=== PATIENT | male | born 1970 | race Caucasian/White ===

== ENCOUNTER 2018-09-18 14:46 | Inpatient (IN) | payer OTHER ==
[2018-09-18] MEDS ORDERED: NA CHLORIDE 0.9% 2,000 ML ONE (15:15)
[2018-09-18 15:22] LABS: Absolute Lymphocytes (CBC) 1.5 K/uL (0.7-4.9); Absolute Monocytes 0.4 K/uL (0.1-1.3); Absolute Neutrophil 5.4 K/uL (1.8-8.0); Basophils % 0.6 % (0-1.3); Eosinophils % 0.3 % (0-4.4); Hematocrit 39.7 % (39.6-49.0); Lymphocytes % 20.6 % (15.3-44.8); MPV 8.1 fL (7.6-11.3); RBC Red Blood Cell Count 4.41 M/uL (4.33-5.43)
[2018-09-18 15:40] LABS: Albumin 3.5 g/dL (3.4-5.0); Bilirubin Direct 0.1 mg/dL (0-0.2); Bilirubin Total 0.5 mg/dL (0.2-1.0); Potassium 4.1 mmol/L (3.5-5.1); Protein, Total 6.5 g/dL (6.4-8.2)
[2018-09-18] MEDS ORDERED: OCTREOTIDE ACETATE 100 MCG/ML ONE (16:34)
[2018-09-18] MEDS: OCTREOTIDE 500 MCG in NA CHLORIDE 0.9% 500 ML IV SCH (17:00)
--- NOTE | 2018-09-18 17:14 | EDPHYS ---
Physician Documentation [facility] Name: Kris Trinidad Age: 48 yrs Sex: Male : 1970 Arrival Date: 09/18/2018 Time: 14:53 Bed 23 Private MD: ED Physician Ajit Hyde HPI: 09/18 17:21 This 48 yrs old Male presents to ER via EMS with complaints of GI Bleeding, gs Syncope. 17:21 The patient presents to the emergency department with rectal bleeding, a large amount, gs brb. Onset: The symptoms/episode began/occurred today. Abdominal pain: none is appreciated. Modifying factors: The symptoms are alleviated by nothing, the symptoms are aggravated by nothing. Associated signs and symptoms: Pertinent positives: syncope. Severity of symptoms: At their worst the symptoms were incapacitating in the emergency department the symptoms are unchanged. The patient has not experienced similar symptoms in the past. Historical: - Allergies: 15:11 No Known Allergies; iw - Home Meds: 15:11 Metformin Oral [Active]; iw - PMHx: 15:11 Diabetes - NIDDM; iw - PSHx: 15:11 None; iw - Immunization history:: Flu vaccine status is unknown. - Social history:: Smoking status: . - Ebola Screening: : Patient negative for fever greater than or equal to 101.5 degrees Fahrenheit, and additional compatible Ebola Virus Disease symptoms Patient denies exposure to infectious person Patient denies travel to an Ebola-affected area in the 21 days before illness onset No symptoms or risks identified at this time. ROS: 17:21 All other systems are negative. gs Exam: 17:21 Head/Face: Normocephalic, atraumatic. Eyes: Pupils equal round and reactive to light, gs extra-ocular motions intact. Lids and lashes normal. Conjunctiva and sclera are non-icteric and not injected. Cornea within normal limits. Periorbital areas with no swelling, redness, or edema. ENT: Nares patent. No nasal discharge, no septal abnormalities noted. Tympanic membranes are normal and external auditory canals are clear. Oropharynx with no redness, swelling, or masses, exudates, or evidence of obstruction, uvula midline. Mucous membranes moist. Neck: Trachea midline, no thyromegaly or masses palpated, and no cervical lymphadenopathy. Supple, full range of motion without nuchal rigidity, or vertebral point tenderness. No Meningismus. Chest/axilla: Normal chest wall appearance and motion. Nontender with no deformity. No lesions are appreciated. 17:21 Respiratory: Lungs have equal breath sounds bilaterally, clear to auscultation and percussion. No rales, rhonchi or wheezes noted. No increased work of breathing, no retractions or nasal flaring. Back: No spinal tenderness. No costovertebral tenderness. Full range of motion. Skin: Warm, dry with normal turgor. Normal color with no rashes, no lesions, and no evidence of cellulitis. MS/ Extremity: Pulses equal, no cyanosis. Neurovascular intact. Full, normal range of motion. Neuro: Awake and alert, GCS 15, oriented to person, place, time, and situation. Cranial nerves II-XII grossly intact. Motor strength 5/5 in all extremities. Sensory grossly intact. Cerebellar exam normal. Normal gait. 17:21 Constitutional: The patient appears alert, awake. 17:21 Cardiovascular: Rate: tachycardic, Rhythm: regular, Pulses: no pulse deficits are appreciated. 17:21 ECG was reviewed by the Attending Physician. 17:21 Abdomen/GI: Inspection: abdomen appears normal, Palpation: abdomen is soft and non-tender, in all quadrants, Rectal exam: Stool: grossly bloody. Vital Signs: 14:53 BP 103 / 79; Pulse 99; Resp 16 S; Temp 97.0(TE); Pulse Ox 98% on R/A; Weight 117.93 kg; iw Height 5 ft. 11 in. (180.34 cm); Pain 0/10; 15:55 BP 115 / 69; Pulse 94; Resp 18; Temp 97; Pulse Ox 100% on R/A; Pain 0/10; mg2 17:00 BP 122 / 78; Pulse 86; Resp 18; Temp 98(O); Pulse Ox 98% on R/A; Pain 0/10; mg2 18:00 BP 119 / 81; Pulse 80; Resp 17; Temp 98; Pulse Ox 98% on R/A; Pain 0/10; mg2 18:45 BP 118 / 82; Pulse 85; Resp 18; Temp 97.9; Pulse Ox 100% on R/A; Pain 0/10; mg2 14:53 Body Mass Index 36.26 (117.93 kg, 180.34 cm) iw MDM: 14:59 Patient medically screened. gs 17:21 Differential diagnosis: gastritis, diverticulitis, hemorrhagic shock. Data reviewed: vital signs, nurses notes, lab test result(s), EKG. Counseling: I had a detailed discussion with the patient and/or guardian regarding: the historical points, exam findings, and any diagnostic results supporting the discharge/admit diagnosis, the need for further work-up and treatment in the hospital. Physician consultation: Austen Vega MD and will see patient in ED, would like admission per Dr. Darrell Hernandez DO. 09/18 15:00 Order name: Type And Screen 09/18 15:00 Order name: Basic Metabolic Panel; Complete Time: 16:13 09/18 15:00 Order name: CBC with Diff; Complete Time: 16:13 09/18 15:00 Order name: Hepatic Function; Complete Time: 16:13 09/18 15:00 Order name: EKG; Complete Time: 15:01 09/18 15:00 Order name: EKG - Nurse/Tech; Complete Time: 15:50 09/18 15:00 Order name: IV Saline Lock; Complete Time: 15:09 09/18 15:00 Order name: Labs collected and sent; Complete Time: 15:11 gs EC:21 Rate is 96 beats/min. Rhythm is regular. [place] interval is normal. QRS interval is normal. gs QT interval is normal. T waves are Normal. No ST changes noted. Clinical impression: Abnormal EKG without significant change. Interpreted by me. Administered Medications: 15:10 Drug: NS 0.9% 1000 ml Route: IV; Rate: 200 ml/hr; Site: left forearm; mg2 18:51 Follow up: Response: No adverse reaction; IV Status: Infusion continued upon admission mg2 15:11 Drug: NS 0.9% 1000 ml Route: IV; Rate: 1 bolus; Site: left forearm; mg2 17:22 Follow up: Response: No adverse reaction; IV Status: Completed infusion; IV Intake: mg2 1000ml 18:52 Follow up: Response: No adverse reaction; IV Status: Completed infusion; IV Intake: mg2 1000ml 16:52 Drug: Octreotide 50 mcg Route: IV; Rate: bolus; Site: right forearm; mg2 18:51 Follow up: Response: No adverse reaction; IV Status: Infusion continued upon admission mg2 16:52 Drug: Octreotide Infusion (50 mcg/hr) - (Octreotide 500 mcg, NS 0.9% 500 ml) Route: IV; mg2 Rate: 50 ml/hr; Site: left forearm; 18:51 Follow up: Response: No adverse reaction; IV Status: Infusion continued upon admission mg2 Disposition: 09/18/18 17:13 Hospitalization ordered by Darrell Hernandez for Inpatient Admission. Preliminary diagnosis is Gastrointestinal hemorrhage, unspecified. - Bed requested for Intensive Care Unit. - Status is Inpatient Admission. mg2 - Condition is Stable. - Problem is new. - Symptoms have improved. UTI on Admission? No Critical care time excluding procedures: 17:21 Critical care time: Bedside Care: 10 minutes, Consultation: 10 minutes, Family gs Intervention: 10 minutes. Total time: 30 minutes Signatures: Dispatcher [employer] EDPauly Simeon RN RN Ajit Hyde MD MD Jaskaran Arevalo RN RN mg2 Corrections: (The following items were deleted from the chart) 18:53 17:13 Hospitalization Ordered by Darrell Hernandez DO for Inpatient Admission. Preliminary mg2 diagnosis is Gastrointestinal hemorrhage, unspecified. Bed requested for Intensive Care Unit. Status is Inpatient Admission. Condition is Stable. Problem is new. Symptoms have improved. UTI on Admission? No. gs
--- NOTE | 2018-09-18 17:14 | ER ---
Nurse's Notes [facility] Name: Kris Trinidad Age: 48 yrs Sex: Male : 1970 Arrival Date: 09/18/2018 Time: 14:53 Bed 23 Private MD: Diagnosis: Gastrointestinal hemorrhage, unspecified Presentation: 09/18 14:55 Presenting complaint: EMS states: pt had colonoscopy yesterday by Dr. Vega, started iw having rectal bleeding at home today, went to follow up at Gary's office, had syncopal episode while in bathroom, had large amount of bright red blood in stool, pt was pale and diaphoretic on scene, hypotensive and tachycardic on scene. Transition of care: patient was received from another setting of care (ambulatory specialty care practice), Dr. Vega. Onset of symptoms was September 18, 2018. Risk Assessment: Do you want to hurt yourself or someone else? Patient reports no desire to harm self or others. Initial Sepsis Screen: Does the patient meet any 2 criteria? HR > 90 bpm. Does the patient have a suspected source of infection? No. Patient's initial sepsis screen is negative. Care prior to arrival: Medication(s) given: Normal saline infusion, 500 mL, IV initiated. 20 GA, in the left forearm, Glucose check: 161. 14:55 Method Of Arrival: EMS: [facility] iw 14:55 Acuity: [place] 2 iw Historical: - Allergies: 15:11 No Known Allergies; iw - Home Meds: 15:11 Metformin Oral [Active]; iw - PMHx: 15:11 Diabetes - NIDDM; iw - PSHx: 15:11 None; iw - Immunization history:: Flu vaccine status is unknown. - Social history:: Smoking status: . - Ebola Screening: : Patient negative for fever greater than or equal to 101.5 degrees Fahrenheit, and additional compatible Ebola Virus Disease symptoms Patient denies exposure to infectious person Patient denies travel to an Ebola-affected area in the 21 days before illness onset No symptoms or risks identified at this time. Screenin:12 Abuse screen: Denies threats or abuse. Denies injuries from another. Nutritional mg2 screening: No deficits noted. Tuberculosis screening: No symptoms or risk factors identified. Fall Risk Fall in past 12 months (25 points). IV access (20 points). Assessment: 15:51 General: Appears in no apparent distress. comfortable, Behavior is calm, cooperative. mg2 Pain: Denies pain. Neuro: Level of Consciousness is awake, alert, obeys commands, Oriented to person, place, time, situation, Reports a syncopal episode. Cardiovascular: Capillary refill < 3 seconds Patient's skin is warm and dry. Respiratory: Airway is patent Respiratory effort is even, unlabored, Respiratory pattern is regular, symmetrical. GI: Abdomen is round non-distended, Reports rectal bleeding. : No signs and/or symptoms were reported regarding the genitourinary system. EENT: No signs and/or symptoms were reported regarding the EENT system. Derm: Skin is intact, is healthy with good turgor, Skin is pink, warm \T\ dry. normal. Musculoskeletal: Circulation, motion, and sensation intact. Capillary refill < 3 seconds. 17:22 Reassessment: dr henry came and advised for admission. mg2 18:48 Reassessment: tap water enema done to the patient, tolerated well, passed bloody output mg2 enema. endoscopy nurse came and saw the output and dr momin was called and ordered to take the patient to endoscopy now. Vital Signs: 14:53 BP 103 / 79; Pulse 99; Resp 16 S; Temp 97.0(TE); Pulse Ox 98% on R/A; Weight 117.93 kg; iw Height 5 ft. 11 in. (180.34 cm); Pain 0/10; 15:55 BP 115 / 69; Pulse 94; Resp 18; Temp 97; Pulse Ox 100% on R/A; Pain 0/10; mg2 17:00 BP 122 / 78; Pulse 86; Resp 18; Temp 98(O); Pulse Ox 98% on R/A; Pain 0/10; mg2 18:00 BP 119 / 81; Pulse 80; Resp 17; Temp 98; Pulse Ox 98% on R/A; Pain 0/10; mg2 18:45 BP 118 / 82; Pulse 85; Resp 18; Temp 97.9; Pulse Ox 100% on R/A; Pain 0/10; mg2 14:53 Body Mass Index 36.26 (117.93 kg, 180.34 cm) iw ED Course: 14:53 Patient arrived in ED. iw 14:53 Paluy Rivera, RN is Primary Nurse. iw 14:58 Triage completed. iw 14:58 Arm band placed on. iw 14:59 Ajit Hyde MD is Attending Physician. gs 15:11 Inserted saline lock: 20 gauge in right antecubital area, using aseptic technique. mg2 Blood collected. by NITHYA Coats Maintain EMS IV. Dressing intact. Good blood return noted. Site clean \T\ dry. Gauge \T\ site: 20 \T\ LFA. IV is patent. 15:31 EKG done, by technical marketing engineer. reviewed by Ajit Hyde MD. sm3 15:52 Patient has correct armband on for positive identification. monitoring coordinator on. Pulse mg2 ox on. NIBP on. Door closed. Warm blanket given. 15:55 No provider procedures requiring assistance completed. mg2 17:13 Darrell Henry DO is Hospitalizing Provider. gs 18:40 tap water enema Patient tolerated well . mg2 18:42 Jaskaran Arevalo, AKOSUA is Primary Nurse. mg2 18:48 Patient admitted, IV remains in place. mg2 Administered Medications: 15:10 Drug: NS 0.9% 1000 ml Route: IV; Rate: 200 ml/hr; Site: left forearm; mg2 18:51 Follow up: Response: No adverse reaction; IV Status: Infusion continued upon admission mg2 15:11 Drug: NS 0.9% 1000 ml Route: IV; Rate: 1 bolus; Site: left forearm; mg2 17:22 Follow up: Response: No adverse reaction; IV Status: Completed infusion; IV Intake: mg2 1000ml 18:52 Follow up: Response: No adverse reaction; IV Status: Completed infusion; IV Intake: mg2 1000ml 16:52 Drug: Octreotide 50 mcg Route: IV; Rate: bolus; Site: right forearm; mg2 18:51 Follow up: Response: No adverse reaction; IV Status: Infusion continued upon admission mg2 16:52 Drug: Octreotide Infusion (50 mcg/hr) - (Octreotide 500 mcg, NS 0.9% 500 ml) Route: IV; mg2 Rate: 50 ml/hr; Site: left forearm; 18:51 Follow up: Response: No adverse reaction; IV Status: Infusion continued upon admission mg2 Intake: 17:22 IV: 1000ml; Total: 1000ml. mg2 18:52 IV: 1000ml; Total: 2000ml. mg2 Outcome: 17:13 Decision to Hospitalize by Provider. gs 18:52 Admitted to OR accompanied by nurse, via stretcher, with chart, Report called to [facility] endoscopy nurse AKOSUA mora 18:52 Condition: stable 18:52 Instructed on the need for admit. 18:53 Patient left the ED. [facility] Signatures: Pauly Rivera RN RN Ajit Hyde MD MD Jaskaran Arevalo RN RN [facility] Niru Carrillo 3 Corrections: (The following items were deleted from the chart) 15:20 14:53 BP 103 / 79; Pulse 99bpm; Resp 16bpm; Spontaneous; Pulse Ox 98% RA; iw iw 15:56 15:55 BP 115 / 69; Pulse 87bpm; Resp 18bpm; Pulse Ox 100% RA; Temp 97F; Pain 0/10; mg2 mg2
--- NOTE | 2018-09-18 17:58 | P.HP ---
Certification for Inpatient Patient admitted to: Inpatient With expected LOS: >2 Midnights Patient will require the following post-hospital care: None Practitioner: I am a practitioner with admitting privileges, knowledge of patient current condition, hospital course, and medical plan of care. Services: Services provided to patient in accordance with Admission requirements found in Title 42 Section 412.3 of the Code of Federal Regulations Patient History Date of Service: 09/18/18 Primary Care Provider: Dr. Ovalle; GI-Dr. Vega Reason for admission: Rectal bleeding, syncope History of Present Illness: 48-year-old male presented to the emergency room after he had a syncopal episode with rectal bleeding. Patient had a colonoscopy yesterday at GI office. He had some rectal bleeding post procedure. The patient was sent home. He noted some rectal bleeding overnight. Rectal bleeding continued. He went back to the GI office to get evaluated. He had a syncopal episode while going to the bathroom vera. He was sent to the ER for further evaluation. In the ER blood pressures were slightly decreased. He was given IV fluids with improvement. Hemoglobin 13.5. CT scan done last night showed no perforation. This was order by GI. Patient reports no chest pain, shortness of breath at this time. Blood pressures remain stable. Patient will be admitted to ICU for close monitoring. Colonoscopy is planned. Patient started on Sandostatin. When I saw the patient in the ER, he appeared comfortable. Blood pressures remain stable. He is not tachycardic. No significant rectal bleeding noted at this time. Patient had colonoscopy yesterday as a screen evaluation. He reports that he had a polypectomy. Home medications list reviewed: Yes - Past Medical/Surgical History Diabetic: Yes -: Diabetes mellitus type 2 -: Right knee surgery Psychosocial/ Personal History: Patient is . He has 3 children. - Family History Father -: Cancer (Lung cancer) Mother -: Other (see notes) (Priscilla Gehrig's disease) - Social History Smoking Status: Never smoker Alcohol use: Yes CD- Drugs: No Caffeine use: Yes Place of Residence: Home Review of Systems General: Weakness, As per HPI Eyes: Unremarkable ENT: Unremarkable Respiratory: As per HPI Cardiovascular: Light Headedness, As per HPI Gastrointestinal: Unremarkable Genitourinary: Unremarkable Musculoskeletal: Unremarkable Integumentary: Unremarkable Neurological: As per HPI Lymphatics: Unremarkable Physical Examination - Physical Exam General: Alert, In no apparent distress, Oriented x3, Cooperative HEENT: Atraumatic, Normocephalic, PERRLA, Mucous membr. moist/pink Neck: Supple Respiratory: Clear to auscultation bilaterally, Normal air movement Cardiovascular: Normal pulses, Regular rate/rhythm Gastrointestinal: Normal bowel sounds, Soft and benign, Non-distended, No tenderness, No masses, No rebound, No guarding Musculoskeletal: No erythema, No tenderness, No warmth Integumentary: No tenderness/swelling, No erythema, No warmth, No cyanosis Neurological: Normal speech, Normal strength at 5/5 x4 extr, Normal tone, Normal affect - Studies Laboratory Data (last 24 hrs) 09/18/18 15:00: WBC 7.3, Hgb 13.5 L, Hct 39.7, Plt Count 255 09/18/18 15:00: Sodium 141, Potassium 4.1, BUN 15, Creatinine 1.19, Glucose 189 H, Total Bilirubin 0.5, AST 20, ALT 40, Alkaline Phosphatase 41 L Assessment and Plan - Plan Impression: Rectal bleeding with syncope status post colonoscopy and polypectomy Acute anemia secondary to above Diabetes mellitus type 2 Plan: Patient will be admitted to ICU. Case discussed with GI. Will continue with IV Sandostatin. Will continue with IV fluids. Will monitor hemoglobin every 6 hr over the next 24 hr. Patient may require blood transfusion if hemoglobin below 8.0 or symptomatic. Will continue to monitor closely. Patient will have colonoscopy soon to re-evaluate bleeding. Recent CT scan done last night shows no perforation. Abdomen appears soft. Await findings. Will keep the patient NPO in preparation for colonoscopy. Discharge Plan: Home Plan to discharge in: 48 Hours - Advance Directives Does patient have a Living Will: No Does patient have a Durable POA for Healthcare: No - Code Status/Comfort Care Code Status Assessed: Yes (Patient is full code.) Time Spent Managing Pts Care (In Minutes): 55
[2018-09-18] MEDS ORDERED: PROPOFOL 200 MG/20 ML VIAL IV ONE ×3 (18:21→18:31)
[2018-09-18] MEDS ORDERED: LIDOCAINE 1% MPF 5 ML VIAL ONE (18:29)
[2018-09-18] MEDS ORDERED: EPHEDRINE SULF 50 MG/ML VIAL ONE (18:29)
[2018-09-18] MEDS ORDERED: EPINEPHRINE/PF 1 MG/ML AMP ONE (19:12)
[2018-09-18] MEDS ORDERED: Ringers Lactate 1,000 ML IV ONE (19:45)
--- NOTE | 2018-09-18 19:51 | ENDO RPT ---
[address], [address] COLONOSCOPY PROCEDURE REPORT EXAM DATE: 09/18/2018 PATIENT NAME: Kris Trinidad MR #: [id number] BIRTHDATE: 1970 ATTENDING: Austen Vega Dr STATUS: inpatient PSYCHOLOGY PROFESSOR: Lisa Miller and Beena Simpson RN INDICATIONS: The patient is a 48 yr old Male here for a colonoscopy due to hematochezia PROCEDURE PERFORMED: Colonoscopy with directed submucosal injection(s) any substance and Colon w/ endoclip MEDICATIONS: Per Anesthesia. ESTIMATED BLOOD LOSS: None CONSENT: The patient understands the risks and benefits of the procedure and understands that these risks include, but are not limited to: sedation, allergic reaction, infection, perforation and/or bleeding. Alternative means of evaluation and treatment include, among others: physical exam, x-rays, and/or surgical intervention. The patient elects to proceed with this endoscopic procedure. DESCRIPTION OF PROCEDURE: During intra-op preparation period all mechanical medical equipment was checked for proper function. Hand hygiene and appropriate measures for infection prevention was taken. Procedure, possible complications, alternatives including, but not limited to possibility of bleeding, perforation, tear, infection, sepsis, need for surgery, need for blood transfusion, were explained to the patient. After the risks, benefits and alternatives of the procedure were thoroughly explained, Informed consent was verified, confirmed and timeout was successfully executed by the treatment team. The patient was placed in the left lateral position. A digital rectal exam was performed and revealed no abnormalities of the rectum. After appropriate level of anesthesia, the scope was passed. The EC-[id number] ([id number]) endoscope was introduced through the anus and advanced to the cecum. The quality of the prep was fair. The instrument was then slowly withdrawn as the colon was fully examined. Scope withdrawal time was 12 minutes. COLON FINDINGS: A polypectomy site of prior 2.1 cm flat polyp was found in the ascending colon with 1 prior endoclip at site. A 1:10,000 Epinephrine solution injection of 4 cc was given to control bleeding. Bleeding at the site was controlled using 2 hemoclips. Two (2) placements were made. There was minimal blood loss from maneuver subsiding by end of procedure. Moderate sized internal hemorrhoids were found. Retroflexed views revealed medium hemorrhoids. The scope was then completely withdrawn from the patient and the procedure terminated. ADVERSE EVENTS: There were no complications. IMPRESSIONS: 1. Polypectomy site of prior 2.1 cm flat polyp in the ascending colon with 1 prior endoclip at site; injection was given to control bleeding. 1:10,000 Epinephrine solution - 4 cc total; bleeding at the site was controlled using 2 hemoclips (one proximal and one distal to previously placed hemoclip 2. Pools of blood (dark>fresh heme) fluid noted throughout the colon, predominantly in the right colon with small amount of fibrous material in the right colon preventing full suctioning out of blood in the right colon 2. Moderate sized internal hemorrhoids 3. Intubation to cecum 2. ICU monitoring 3. NPO except ice chips and water until tomorrow, if stable then without further significant bleeding will start CLs 4. Continue IV Octreotide for 3 days and IVFs RECALL: Austen Vega Dr eSigned: Austen Vega Dr 09/18/2018 7:51 PM cc: Darrell Hernandez CPT CODES: ICD9 CODES: 211.3 Benign neoplasm of colon PATIENT NAME: Kris Trinidad MR#: [id number]
[2018-09-18] MEDS ORDERED: ONDANSETRON 4 MG/2 ML VIAL IV PRN (20:27)
[2018-09-18] MEDS ORDERED: SODIUM CHLORIDE 0.9% 10ML INJ IV PRN (20:27)
[2018-09-18] MEDS ORDERED: ACETAMINOPHEN 500 MG TAB PO PRN (20:27)
[2018-09-18] MEDS: INSULIN -REGULAR HUMAN 50 UNIT/0.5 ML ML SQ SCH (21:00)
[2018-09-18] MEDS: NA CHLORIDE 0.9% 1,000 ML IV SCH (21:33)
[2018-09-18 22:23] LABS: Hematocrit 34.8 % (39.6-49.0)
[2018-09-18 22:32] LABS: Urine Appearance CLEAR; Urine Bilirubin NEGATIVE (NEG); Urine Blood NEGATIVE (NEG); Urine Color YELLOW; Urine Glucose NEGATIVE (NEG); Urine Protein NEGATIVE (NEG); Urine Urobilinogen 0.2 mg/dL (0.2-1.0)
[2018-09-18 22:39] LABS: Urine Microscopic Reflex NO UMIC
--- NOTE | 2018-09-19 02:19 | CON ---
Date of Consultation: 09/18/2018 Reason For Consultation: GI bleed, hematochezia, status post colonoscopy, polypectomy yesterday. History Of Present Illness: The patient is a 48-year-old white male who underwent colonoscopy yester day, had a 2.1 cm flat polyp in the ascending colon removed, with Endoclips placed, and 2 smaller 3 m m polyps which were removed by cold polypectomy. The patient did fine until approximately 12:30 toda y when he started having bright red blood per rectum and felt weak and clammy, diaphoretic, came to [facility] office, had a bowel movement with a large amount of blood in the toilet. The patient was transport ed by ambulance to the hospital, resuscitated with IV fluids. Hemoglobin was found to be 13.5, stabi lized. IV octreotide started as well. The patient was given tap water enemas in the emergency room and then the patient brought to the hospital. Past Medical History: See nurse and ER notes. Medications: See home medication list. Allergies: NKDA. Social History: He is . There has been no tobacco. Some occasional alcohol . Review of Systems: The patient has hematochezia, some presyncope, lightheadedness, weakness. He denies any melena, lakshmi temesis, coffee-grounds emesis, nausea, vomiting, fevers, chills, though he has been diaphoretic with bloody stools today since 12:30. He denies any chest pain, shortness of breath, seizure, syncope, l ower extremity edema, muscle aches, joint aches, backaches, depression, anxiety. Physical Examination: Vital Signs: The patient is afebrile currently after resuscitation in the emergency room. General: Appears to be in no acute distress. He is alert and oriented x3. HEENT: Extraocular movements intact. Oropharynx is clear. Neck: Supple. No masses. Respirations: Clear to auscultation bilaterally. Cardiac: Regular rate and rhythm. No gallops or rubs. Abdomen: Positive bowel sounds. Soft, nontender, nondistended. No hepatosplenomegaly. Slightly hy peractive bowel sounds. Extremities: No clubbing, cyanosis, or edema. 2+ pulses. Neuro: Alert and oriented x3. Grossly nonfocal. 5/5 motor strength. Sensation intact to light [place] ch. Laboratory Data: The patient has a hemoglobin of 13.5. Impression: Post polypectomy bleed. Hemoglobin 13.5 today. The patient had colonoscopy yesterday w ith 2.1 cm flat polyp removed from ascending colon with Endoclip x1 placed. Vital signs are currentl y stable. Recommendations: 1.Urgent colonoscopy. 2.Continue IV fluids. 3.Continue IV octreotide. 4.Serial H and H and transfuse p.r.n. 5.NPO. 6.Tap water enemas which have been given in the emergency room. 7. will probably need ICU monitoring. ANATOLIY/TRUE Voice ID: [id number] Report ID: [id number]
[2018-09-19] MEDS: OCTREOTIDE 500 MCG in NA CHLORIDE 0.9% 500 ML IV SCH ×2 (03:37→13:11)
[2018-09-19] MEDS: NA CHLORIDE 0.9% 1,000 ML IV SCH ×2 (05:14→13:10)
[2018-09-19 05:33] LABS: Absolute Lymphocytes (CBC) 1.5 K/uL (0.7-4.9); Absolute Monocytes 0.4 K/uL (0.1-1.3); Absolute Neutrophil 4.7 K/uL (1.8-8.0); Basophils % 0.8 % (0-1.3); Eosinophils % 1.1 % (0-4.4); MPV 7.9 fL (7.6-11.3); Monocytes % 6.1 % (3.3-12.3); RBC Red Blood Cell Count 3.73 M/uL (4.33-5.43)
[2018-09-19 05:45] LABS: BUN Blood Urea Nitrogen 9 mg/dL (7-18); Bicarbonate 26 mmol/L (21-32); Glucose Level 120 mg/dL (74-106); Magnesium 2.1 mg/dL (1.8-2.4); Potassium 4.1 mmol/L (3.5-5.1); Sodium Level 141 mmol/L (136-145)
[2018-09-19] MEDS ORDERED: PANTOPRAZOLE 40 MG INJ IVP SCH (06:30)
[2018-09-19] MEDS: INSULIN -REGULAR HUMAN 50 UNIT/0.5 ML ML SQ SCH ×3 (07:30→16:30)
--- NOTE | 2018-09-19 08:29 | EKG ---
Test Date: 2018-09-18 Test Time: 15:28:23 Shared Services Representative: REJI MEASUREMENT RESULTS: Intervals: Rate: 96 LA: 158 QRSD: 100 QT: 378 QTc: 477 [place]: P: 44 LA: 158 QRS: -17 T: 28 INTERPRETIVE STATEMENTS: Normal sinus rhythm Incomplete right bundle branch block Borderline ECG No previous ECG available for comparison Electronically Signed On 09-19-18 08:28:06 CDT by Samuel Higuera
--- NOTE | 2018-09-19 08:45 | P.PN ---
Subjective Date of Service: 09/19/18 Primary Care Provider: Dr. Ovalle; GI-Dr. Vega Chief Complaint: Rectal bleeding, syncope Subjective: Improving (No more rectal bleeding noted. Patient appears stable. Patient desires to eat) Physical Examination - Vital Signs Temperature: 97.4 F Blood Pressure: 119/74 Pulse: 79 Respirations: 17 Pulse Ox (%): 95 - Physical Exam General: Alert, In no apparent distress, Oriented x3, Cooperative HEENT: Atraumatic Neck: Supple Respiratory: Clear to auscultation bilaterally, Normal air movement Cardiovascular: Normal pulses, Regular rate/rhythm Gastrointestinal: Normal bowel sounds, Soft and benign, Non-distended, No ascites, No tenderness, No masses, No rebound, No guarding Musculoskeletal: No tenderness, No warmth Neurological: Normal speech, Normal strength at 5/5 x4 extr, Normal tone, Normal affect - Studies Laboratory Data (last 24 hrs) 09/18/18 15:00: WBC 7.3, Hgb 13.5 L, Hct 39.7, Plt Count 255 09/18/18 15:00: Sodium 141, Potassium 4.1, BUN 15, Creatinine 1.19, Glucose 189 H, Total Bilirubin 0.5, AST 20, ALT 40, Alkaline Phosphatase 41 L Medications List Reviewed: Yes Assessment & Plan Discharge Plan: Home Plan to discharge in: 24 Hours Physician Review Additional Text: Impression: Rectal bleeding with syncope status post colonoscopy and polypectomy with repeat colonoscopy and control of bleeding Acute anemia secondary to above Diabetes mellitus type 2 Plan: Rectal bleeding with syncope status post colonoscopy and polypectomy with repeat colonoscopy and control of bleeding: Patient has improved. Hemoglobin stable. Patient had Re colonoscopy yesterday. Polypectomy site of prior 2.1 cm flat polyp in the ascending colon was Re clipped. Injection with epinephrine to control bleeding was also done. Patient has improved. Will start clear liquid diet. Will discuss with GI with plan of care. Patient may have to continue with IV octreotide for 3 days to closely monitor for further bleeding before discharge. Will discuss plan of care with GI. If stable will transfer the patient to the floor. Patient desires to go home today. Will discuss with GI. If the patient remains in the hospital I will transfer the service to Dr. Lira tomorrow. I will plan of care with her. Acute anemia secondary to above: Bleeding controlled. Hemoglobin stable. No need for transfusion. Diabetes mellitus type 2: Continue sliding scale. Hold metformin. Time Spent Managing Pts Care (In Minutes): 55
--- NOTE | 2018-09-19 11:19 | P.PN ---
Subjective Date of Service: 09/19/18 Primary Care Provider: Dr. Ovalle; GI-Dr. Vega Chief Complaint: Rectal bleeding, syncope Subjective: Improving (No bleeding today. Feels well. Wants advance in diet. Tolerated clear liquid diet today. Hgb drifting with continued IVFs from 13.5 to 11.4.) Review of Systems 10-point ROS is otherwise unremarkable General: Weakness (Improved. ) Physical Examination - Vital Signs Temperature: 97.4 F Blood Pressure: 115/70 Pulse: 78 Respirations: 24 Pulse Ox (%): 96 - Physical Exam General: Alert, In no apparent distress, Oriented x3, Cooperative HEENT: Atraumatic, Normocephalic, PERRLA, EOMI Neck: Supple Respiratory: Normal air movement Cardiovascular: Normal pulses Gastrointestinal: Soft and benign, No tenderness, No rebound, No guarding Neurological: Normal speech, Normal strength at 5/5 x4 extr - Studies Laboratory Data (last 24 hrs) 09/18/18 15:00: WBC 7.3, Hgb 13.5 L, Hct 39.7, Plt Count 255 09/18/18 15:00: Sodium 141, Potassium 4.1, BUN 15, Creatinine 1.19, Glucose 189 H, Total Bilirubin 0.5, AST 20, ALT 40, Alkaline Phosphatase 41 L Medications List Reviewed: Yes Assessment And Plan - Current Problems (Diagnosis) (1) Hematochezia Current Visit: Yes Status: Acute Comment: None today. (2) GI bleed Current Visit: Yes Status: Acute (3) Post-polypectomy bleeding Current Visit: Yes Status: Acute - Plan REC: 1) advance diet to FLs and then to GI soft 2) monitor labs 3) wean off IV Octreotide tomorrow 4) probable discharge in AM Physician Review Additional Text: Impression: Rectal bleeding with syncope status post colonoscopy and polypectomy with repeat colonoscopy and control of bleeding Acute anemia secondary to above Diabetes mellitus type 2 Plan: Rectal bleeding with syncope status post colonoscopy and polypectomy with repeat colonoscopy and control of bleeding: Patient has improved. Hemoglobin stable. Patient had Re colonoscopy yesterday. Polypectomy site of prior 2.1 cm flat polyp in the ascending colon was Re clipped. Injection with epinephrine to control bleeding was also done. Patient has improved. Will start clear liquid diet. Will discuss with GI with plan of care. Patient may have to continue with IV octreotide for 3 days to closely monitor for further bleeding before discharge. Will discuss plan of care with GI. If stable will transfer the patient to the floor. Patient desires to go home today. Will discuss with GI. If the patient remains in the hospital I will transfer the service to Dr. Lira tomorrow. I will plan of care with her. Acute anemia secondary to above: Bleeding controlled. Hemoglobin stable. No need for transfusion. Diabetes mellitus type 2: Continue sliding scale. Hold metformin.
[2018-09-19 18:24] LABS: Hematocrit 35.6 % (39.6-49.0)
--- NOTE | 2018-09-19 20:22 | P.DS ---
Admission Date: 09/18/18 Discharge Date: 09/19/18 Primary Care Provider: Dr. Ovalle; GI-Dr. Vega Disposition: ROUTINE DISCHARGE Discharge Condition: GOOD Reason for Admission: Rectal bleeding, syncope Brief History of Present Illness: By Dr Hernandez: 48-year-old male presented to the emergency room after he had a syncopal episode with rectal bleeding. Patient had a colonoscopy yesterday at GI office. He had some rectal bleeding post procedure. The patient was sent home. He noted some rectal bleeding overnight. Rectal bleeding continued. He went back to the GI office to get evaluated. He had a syncopal episode while going to the bathroom. He was sent to the ER for further evaluation. In the ER blood pressures were slightly decreased. He was given IV fluids with improvement. Hemoglobin 13.5. CT scan done last night showed no perforation. This was order by GI. Patient reports no chest pain, shortness of breath at this time. Blood pressures remain stable. Patient will be admitted to ICU for close monitoring. Colonoscopy is planned. Patient started on Sandostatin. When I saw the patient in the ER, he appeared comfortable. Blood pressures remain stable. He is not tachycardic. No significant rectal bleeding noted at this time. Patient had colonoscopy yesterday as a screen evaluation. He reports that he had a polypectomy. Hospital Course: The patient was admitted in ICU for close monitoring, after receive IV fluids, his blood pressure improved and remain stable. HH remain stable the whole admission. He did not require blood transfusion. Dr Vega performed a new colonoscopy. It was found that the bleeding was coming from previous polypectomy area. The bleeding was controlled with endoclips and epinephrine injection. After the procedure, the patient remain hemodynamically stable, without signs of active bleeding. This morning he start with clear liquid diet, well tolerated. This evening, the diet was advanced to full liquid, and it was also well tolerated. The case was discussed with Dr vega, who is agree to release the patient home today. He will be discharged in stable condition. Follow up with PCP and Dr Vega as indicated. Vital Signs/Physical Exam: Temp Pulse Resp BP Pulse Ox 98.5 F 89 16 144/70 H 98 09/19/18 12:45 09/19/18 13:00 09/19/18 13:00 09/19/18 13:00 09/19/18 13:00 General: Alert, In no apparent distress Respiratory: Clear to auscultation bilaterally, Normal air movement Cardiovascular: Regular rate/rhythm, Normal S1 S2 Gastrointestinal: Normal bowel sounds, No tenderness Musculoskeletal: No tenderness Integumentary: No rashes Neurological: Normal speech, Normal tone, Normal affect Laboratory Data at Discharge: WBC 6.7 K/uL (4.3-10.9) 09/19/18 05:23 Hgb 12.2 g/dL (13.6-17.9) L 09/19/18 18:09 Hct 35.6 % (39.6-49.0) L 09/19/18 18:09 Plt Count 210 K/uL (152-406) 09/19/18 05:23 Sodium 141 mmol/L (136-145) 09/19/18 05:23 Potassium 4.1 mmol/L (3.5-5.1) 09/19/18 05:23 BUN 9 mg/dL (7-18) 09/19/18 05:23 Creatinine 0.78 mg/dL (0.55-1.3) 09/19/18 05:23 Glucose 120 mg/dL (74-106) H 09/19/18 05:23 Magnesium 2.1 mg/dL (1.8-2.4) 09/19/18 05:23 Total Bilirubin 0.5 mg/dL (0.2-1.0) 09/18/18 15:00 AST 20 U/L (15-37) 09/18/18 15:00 ALT 40 U/L (12-78) 09/18/18 15:00 Alkaline Phosphatase 41 U/L (45-117) L 09/18/18 15:00 Home Medications: Metformin HCl 1,000 mg PO BID 09/18/18 Patient Discharge Instructions: F/U with PCP next week. come back to ER if symptoms got worse. Continue soft diet for 48 HR, and then resume ADA diet. Diet: GI soft for 48 HR, then resume ADA Activity: Ad tierra Followup: Austen Vega MD [ASSOCIATE-ACTIVE - CAN ADMIT] - 1 Week Time spent managing pt's care (in minutes): 40
== END 2018-09-19 21:47 | disposition home or self-care (01) | DRG 920 ==
LOC: ER 14:46 → ERHOLD 17:22 → 3RD-ICU 20:45 → 2ND 09-19 13:12
PROVIDERS: ADMIT Family Medicine; ATTEND Family Medicine
PROC: 0W3P8ZZ Control Bleeding in Gastrointestinal Tract, Via Natural or Artificial Opening Endoscopic (ICD-10-PCS; principal; 2018-09-18 18:53)
DX: K91.840 Postprocedural hemorrhage of a digestive system organ or structure following a digestive system procedure (principal); K92.1 Melena; R55 Syncope and collapse; Y84.8 Other medical procedures as the cause of abnormal reaction of the patient, or of later complication, without mention of misadventure at the time of the procedure; D64.9 Anemia, unspecified; K64.8 Other hemorrhoids; E11.9 Type 2 diabetes mellitus without complications; Z79.84 Long term (current) use of oral hypoglycemic drugs
CPT/HCPCS: 36415; 71260; 74177; 80048; 80076; 81003; 82962; 83735; 85014; 85018; 85025; 86850; 86900; 86901; 93005; 96365; 96367; 99285; C9113; J0171; J2354; J2704; J7030; Q9967